=== PATIENT | female | born 1980 | race Caucasian/White ===

== ENCOUNTER 2016-04-15 16:11 | Emergency (ER) | payer OTHER ==
[~2016-04-15] VITALS: Ht 167.6 cm; Wt 127.0 kg
[~2016-04-15 16:11] MED LIST: DOCU100C37 PO; IBUP-1780 PO; ONDA8TAB13 PO; OXYC-465 PO; PNV11TAB PO
--- OUTSIDE RECORDS SUMMARY | 2016-04-15 16:17 | XMS REPORT | Continuity of Care Document ---
Author Author Interface Organization Interface Address Unknown Phone Unavailable Problems Problem Status Onset Date Classification Date Reported Comments Source Allergic rhinitis (disorder) Active Problem 10/11/2015 [facility] Gastroesophageal reflux disease (disorder) Active Problem 10/11/2015 [facility] Polycystic ovaries (disorder) Active Problem 10/11/2015 [facility] Unspecified sinusitis (chronic) 01/25/2014 Diagnosis 01/2014 [facility] Benign neoplasm of skin, site unspecified 09/14/2013 Diagnosis 09/18/2013 [facility] Encounter for other specified aftercare following surgery 09/20/2013 Diagnosis 09/24/2013 [facility] Polycystic ovaries 2013 Diagnosis 08/28/2013 [facility] Contusion of knee 2013 Diagnosis 08/28/2013 [facility] Routine gynecological examination 08/24/2013 Diagnosis [facility]. Herpes simplex without mention of complication 08/24/2013 Diagnosis 08/28/2013 [facility] Increased frequency of urination (finding) 10/07/2015 Diagnosis 10/11/2015 [facility] Polycystic ovaries (disorder) 10/07/2015 Diagnosis 2015 [facility] Medical examinations/reports status (finding) 10/07/2015 Diagnosis 10/11/2015 [facility] Medications Medication Details Route Status Patient Instructions Ordering Provider Order Date Source No Known Medications No known medications Active [facility] Allergies, Adverse Reactions, Alerts Substance Category Reaction Severity Reaction type Status Date Reported Comments Source NKA Assertion Drug allergy [facility] Immunizations Immunization Date Given Site Status Last Updated Comments Source No data available for this section No data available for this section [facility]. tetanus/diphth/pertuss (Tdap) adult/adol 08/19/2014 tetanus/diphth/pertuss (Tdap) adult/adol [place] [facility]. Results Order Name Results Value Reference Range Date Interpretation Comments Source Vital Signs Vital Sign Value Date Comments Source Encounters Location Location Details Encounter Type Encounter Number Reason For Visit Attending Provider ADM Date DC Date Status Source [facility] [id number] Clinic ( Outpatient) [id number] [place] 10/07/2015 Active [facility] [id number] Clinic ( Outpatient) [id number] [place] 08/24/2013 Active [facility] [id number] Clinic ( Outpatient) [id number] Joselyn [place] 09/20/2013 Active [facility] Cancel/ No Show [id number] [place] 11/23/2013 11/16/2013 [facility] Cancel/ No Show [id number] [place] 01/30/2014 01/25/2014 [facility] [id number] [place] 01/25/2014 01/26/2014 [facility] [id number] [place] 09/14/2013 09/15/2013 [facility] [id number] Joselyn [place] 09/20/2013 09/21/2013 [facility] [id number] Clinic ( Outpatient) [id number] [place] 01/25/2014 Active [facility] [id number] [place] 08/24/2013 08/25/2013 [facility] [id number] Clinic ( Outpatient) [id number] [place] 01/30/2014 Active [facility] [id number] [place] 10/07/2015 10/08/2015 [facility] [id number] Clinic ( Outpatient) [id number] [place] 09/14/2013 Active [facility] [id number] Clinic ( Outpatient) [id number] [place] 11/23/2013 Active [facility] Procedures Procedure Code Date Perfomer Comments Source No data available for this section [facility]. delivery only; 18207 12/03/2014 [facility].
[2016-04-15] MEDS ORDERED: BIRTH CONTROL (16:33)
[2016-04-15 16:43] LABS: BILIRUBIN,URINE NEGATIVE (NEGATIVE); KETONES,URINE NEGATIVE (NEGATIVE); LEUKOCYTE ESTERASE ,URINE 1+ (NEGATIVE); NITRITE,URINE NEGATIVE (NEGATIVE); PH,URINE 7 (5-9); PROTEIN,URINE 2+ (NEGATIVE); UROBILINOGEN,URINE 1 MG/DL (NORMAL)
--- NOTE | 2016-04-15 16:59 | ED Abdominal Pain ---
General Chief Complaint: Abdominal/GI Problems Stated Complaint: ABD PAIN Nursing Triage Note: PT STATES LOW ABD PAIN THAT STARTED THIS A.M. PAIN ON BOTH SIDES RADIATING DOWN TO VAG AREA. DENIES PAIN ON URINATION. NORMAL BM ABOUT 3 HRS [employer]. NAUSEA BUT DENIES VOMITING. CURRENTLY ON HER PERIOD, STATES SHE HAS PCOS. Sepsis Screen: No Definite Risk Source of Information: Patient Exam Limitations: No Limitations History of Present Illness Time Seen By Provider: 16:58 Initial Comments To ER with bilateral lower quadrant and suprapubic abdominal pain that started this morning. Pain has become quite intense and radiates to the vaginal area. She is on her menstrual cycle and reports no vaginal discharge other than the blood that began this morning. She has a history of polycystic ovaries but has never had pain with them before. States that her menstrual cycles are fairly regular. Timing/Duration: 1-2 Days Severity/Quality: Moderate Location: Suprapubic Radiation: No Radiation Activities at Onset: None Associated Symptoms: Denies Symptoms Allergies and Home Medications Allergies Coded Allergies: No Known Drug Allergies (Unverified , 11/28/14) Home Medications (Reported) Review of Systems Constitutional: see HPI EENTM: No Symptoms Reported Respiratory: No Symptoms Reported Cardiovascular: No Symptoms Reported Gastrointestinal: See HPI Abdominal Pain Genitourinary: No Symptoms Reported Musculoskeletal: no symptoms reported Skin: no symptoms reported Psychiatric/Neurological: No Symptoms Reported Endocrine: No Symptoms Reported Hematologic/Lymphatic: No Symptoms Reported Past Kcmolac-Erywpr-Dpaytg Hx Patient Social History Alcohol Use: Denies Use Recreational Drug Use: No Smoking Status: Never a Smoker Recent Foreign Travel: No Contact w/Someone Who Travel: No Recent Infectious Disease Expo: No Recent Hopitalizations: No Physical Abuse Screen: No Sexual Abuse: No Immunizations Up To Date Tetanus Booster (TDap): Unknown Date of Influenza Vaccine: Dec 24, 2015 Seasonal Allergies Seasonal Allergies: Yes Surgeries HX Surgeries: Yes (CYSTOSCOPE) Surgeries: Section Respiratory Hx Respiratory Disorders: No Cardiovascular Hx Cardiac Disorders: No Neurological Hx Neurological Disorders: No Reproductive System : No Hx Reproductive Disorders: Yes (PCOS) Genitourinary Hx Genitourinary Disorders: Yes (cystoscope at 5 months old) Gastrointestinal Hx Gastrointestinal Disorders: Yes Gastrointestinal Disorders: Hemorrhoids Musculoskeletal Hx Musculoskeletal Disorders: No Endocrine Hx Endocrine Disorders: No HEENT HX ENT Disorders: Yes (nastagmis) Cancer Hx Cancer: No Psychosocial Hx Psychiatric Problems: No Integumentary HX Skin/Integumentary Disorder: No Blood Transfusions Hx Blood Disorders: No Adverse Reaction to a Blood Tr: No Family Medical History Family Medial History: Patient reports no known family medical history. Physical Exam Vital Signs VS - Last 72 Hours, by Label 04/15/16 16:18 Temp 96.3 Pulse 83 Resp 20 B/P 79/ Pulse Ox 96 O2 Delivery Room Air Capillary Refill : Less Than 3 Seconds General Appearance: WD/WN no apparent distress HEENT: PERRL/EOMI normal ENT inspection Neck: non-tender full range of motion Respiratory: no respiratory distress no accessory muscle use Gastrointestinal: normal bowel sounds non tender soft Extremities: normal range of motion non-tender Neurologic/Psychiatric: alert normal mood/affect oriented x 3 Skin: normal color warm/dry Progress/Results/Core Measures Results/Orders Lab Results Laboratory Tests Test 04/15/16 16:25 04/15/16 17:10 Range/Units Urine Bacteria FEW H /HPF Urine Bilirubin NEGATIVE NEGATIVE Urine Casts NONE /LPF Urine Clarity SLIGHTLY CLOUDY Urine Color YELLOW Urine Crystals NONE /LPF Urine Culture Indicated NO Urine Glucose (UA) NEGATIVE NEGATIVE Urine Ketones NEGATIVE NEGATIVE Urine Leukocyte Esterase 1+ H NEGATIVE Urine Mucus NEGATIVE /LPF Urine Nitrite NEGATIVE NEGATIVE Urine Protein 2+ H NEGATIVE Urine RBC >100 H /HPF Urine RBC (Auto) 5+ H NEGATIVE Urine Specific [place] 1.015 L 1.016-1.022 Urine Squamous Epithelial Cells 10-25 H /HPF Urine Urobilinogen 1 NORMAL MG/DL Urine WBC 2-5 /HPF Urine pH 7 5-9 Alanine Aminotransferase (ALT/SGPT) 13 0-55 U/L Albumin 4.2 3.2-4.5 G/DL Alkaline Phosphatase 78 40-136 U/L Anion Gap 8 5-14 MMOL/L Aspartate Amino Transf (AST/SGOT) 12 5-34 U/L BUN/Creatinine Ratio 11 Band Neutrophils 4 % Basophils # (Auto) 0.0 0.0-0.1 10^3/uL Basophils % (Manual) 0 % Basophils (%) (Auto) 0 0-10 % Blood Morphology Comment NORMAL Blood Urea Nitrogen 10 7-18 MG/DL Calcium Level 8.8 8.5-10.1 MG/DL Carbon Dioxide Level 23 21-32 MMOL/L Chloride Level 107 98-107 MMOL/L Creatinine 0.91 0.60-1.30 MG/DL Eosinophils # (Auto) 0.2 0.0-0.3 10^3/uL Eosinophils % (Manual) 0 % Eosinophils (%) (Auto) 1 0-10 % Estimat Glomerular Filtration Rate > 60 Glucose Level 103 70-105 MG/DL Hematocrit 44 35-52 % Hemoglobin 14.5 11.5-16.0 G/DL Lymphocytes # (Auto) 1.9 1.0-4.0 X 10^3 Lymphocytes % (Manual) 13 % Lymphocytes (%) (Auto) 13 12-44 % Mean Corpuscular Hemoglobin 27 25-34 PG Mean Corpuscular Hemoglobin Concent 33 32-36 G/DL Mean Corpuscular Volume 82 80-99 FL Mean Platelet Volume 10.4 7.4-10.4 FL Monocytes # (Auto) 0.8 0.0-1.0 X 10^3 Monocytes % (Manual) 4 % Monocytes (%) (Auto) 5 0-12 % Neutrophils # (Auto) 11.9 H 1.8-7.8 X 10^3 Neutrophils % (Manual) 79 % Neutrophils (%) (Auto) 81 H 42-75 % Platelet Count 339 130-400 10^3/uL Potassium Level 3.8 3.6-5.0 MMOL/L Red Blood Count 5.34 4.35-5.85 10^6/uL Red Cell Distribution Width 14.4 10.0-14.5 % Sodium Level 138 135-145 MMOL/L Total Bilirubin 0.6 0.1-1.0 MG/DL Total Protein 6.9 6.4-8.2 G/DL White Blood Count 14.7 H 4.3-11.0 10^3/uL My Orders Orders-NADYA DEGROOT APRN Ua Culture If Indicated (04/15/16 16:36) Urine Bedside (04/15/16 16:36) Cbc With Automated Diff (04/15/16 16:49) Comprehensive Metabolic Panel (04/15/16 16:49) Saline Lock/Iv-Start (04/15/16 16:57) Ketorolac Injection (Toradol Injection) (04/15/16 17:00) Iohexol Injection (Omnipaque 350 Mg/Ml 1 (04/15/16 17:15) Ns (Ivpb) (Sodium Chloride 0.9% Ivpb Bag (04/15/16 17:15) Sodium Chloride Flush (Catheter Flush Sy (04/15/16 17:15) Ct Abd/Pelvis Wo(Kidney Stone) (04/15/16 17:20) Manual Differential (04/15/16 17:10) Us Non Ob Pelvis Comp/Transvag (04/15/16 17:43) Medications Given in ED Current Medications Medications Dose Ordered Sig/Robbin Route Start Time Stop Time Status Last Admin Dose Admin Ketorolac Tromethamine 30 mg ONCE ONCE IVP 04/15/16 17:00 04/15/16 17:01 DC 04/15/16 17:22 30 MG Vital Signs/I&O Vital Sign - Last 12Hours 04/15/16 16:18 Temp 96.3 Pulse 83 Resp 20 B/P 79/ Pulse Ox 96 O2 Delivery Room Air Point of Care Testing Urine -Bedside: Negative Diagnostic Imaging Diagonstic Imaging: CT Comments NAME: RACHNA MINER Diana [facility] REC#: [id number] PT STATUS: REG ER : 1980 PHYSICIAN: NADYA DEGROOT APRN ADMIT DATE: 04/15/16/ER Signed Date of Exam:04/15/16 CT ABD/PELVIS WO(KIDNEY STONE) INDICATION: Kidney stone protocol for anterior pain in the belly button region. Nausea. No hematuria. EXAMINATION: CT of the abdomen and pelvis without contrast, 04/15/2016. FINDINGS: There is no hydronephrosis on either side. No nephrolithiasis is appreciated. There are no ureteral stones appreciated. There are calcifications in the pelvis most consistent with phleboliths. There is a small amount of free fluid in the pelvis which is likely physiologic. There is a large heterogeneous lesion in the left aspect of the upper pelvis which contains fatty tissue as well as calcifications, most consistent with a dermoid or teratoma. This measures 4.2 x 5.1 cm in size. A similar but larger lesion on the right is noted and measures 9.3 x 7.0 cm in size, also containing fatty tissue, solid densities and calcifications as well as fluid. In the same region, within the anterior pelvis, there is a fat-containing anterior abdominal wall hernia which measures 6.6 cm in greatest dimension. A small amount of fat stranding within the herniated fat and also within the mesenteric fat immediately posterior to the herniation is noted. Nonopacified liver, spleen, adrenal glands and pancreas appear unremarkable. The gallbladder is slightly contracted without surrounding inflammatory change appreciated. A rounded density anterior to the spleen most likely is a splenule. There is no free fluid or air in the abdomen. The appendix is unremarkable. No free air in the pelvis. Some fatty change is seen within the wall and the bowel loops perhaps due to chronic or prior infectious etiology. Superimposed focal enteritis or acute inflammatory process is not excluded given some inflammation and fat stranding and fluid surrounding the right lower quadrant small bowel loops. The osseous structures demonstrate no evidence for acute abnormality. Incomplete pars defects noted in the lower lumbar region. The lung bases are unremarkable. The appendix is unremarkable. IMPRESSION: 1. Heterogeneous masses in the pelvis, bilaterally, likely teratomas or dermoids, associated with both ovaries. Sonographic characterization on a nonemergent basis could further characterize. 2. Fat-containing anterior abdominal wall hernia in the lower abdomen. Some fat stranding is seen within the herniated fat and also within the fatty tissues in the anterior mesentery. A superimposed inflammatory process is possible, correlate with symptoms. 3. Inflammatory change about several small bowel loops in the right lower abdomen. This could be due to an enteritis or other inflammatory/infectious process, correlate with history and symptoms. 4. Other incidental findings as discussed above. Dictated by: Dictated on workstation # [id number] Dict: 04/15/16 1739 Trans: 04/15/[address] [facility] [id number] Interpreted by: KIMBERLEE DIAZ MD Electronically signed by: KIMBERLEE DIAZ MD 04/15/16 1824 Departure Communication Progress Notes Discussed the case with Dr. Downing. He recommends follow-up with major assembly lineman as soon as possible. Impression Impression: Primary Impression: Bilateral dermoid cysts of ovaries Disposition: HOME, SELF-CARE Condition: Stable Departure-Patient Inst. Referrals: VENICE RICHTER DENNIS G MD MCNULTY, ERIN N MD NO,LOCAL PHYSICIAN (PCP) Primary Care Physician PIERRE DOWNING DO Patient Instructions: Ovarian Cyst (DC) Add. Discharge Instructions: 1. Call tomorrow to make an appointment for follow-up next week 2. Return to ER for any worsening pain or other concerns 3. Tylenol and Motrin for pain All discharge instructions reviewed with patient and/or family. Voiced understanding. Copy Copies To 1: JOSE ANGEL CARVALHO MD; PIERRE DOWNING PETER J APRN Apr 15, 2016 16:59
[2016-04-15] MEDS ORDERED: KETOROLAC 30 MG/ML VIAL IVP ONE (17:00)
[2016-04-15] MEDS ORDERED: IOHEXOL 350 MG/ML 100 ML (OMNIPAQUE 350) VIAL IV ONE (17:15)
[2016-04-15] MEDS ORDERED: NS 100 ML (IVPB) BAG IV ONE (17:15)
[2016-04-15] MEDS ORDERED: CATHETER FLUSH 10 ML SYR IV PRN (17:15)
[2016-04-15 17:24] LABS: BASOPHILS % (AUTO) 0 % (0-10); EOSINOPHILS # (AUTO) 0.2 10^3/uL (0.0-0.3); EOSINOPHILS % (AUTO) 1 % (0-10); LYMPHOCYTES # (AUTO) 1.9 X 10^3 (1.0-4.0); LYMPHOCYTES % (AUTO) 13 % (12-44); MEAN CORPUSCULAR HEMOGLOBIN 27 PG (25-34); MEAN CORPUSCULAR HGB CONC 33 G/DL (32-36); MEAN CORPUSCULAR VOLUME 82 FL (80-99); MEAN PLATELET VOLUME 10.4 FL (7.4-10.4); MONOCYTES # (AUTO) 0.8 X 10^3 (0.0-1.0); MONOCYTES % (AUTO) 5 % (0-12); NEUTROPHILS # (AUTO) 11.9 X 10^3 (1.8-7.8); NEUTROPHILS % (AUTO) 81 % (42-75); PLATELET COUNT 339 10^3/uL (130-400); RED BLOOD COUNT 5.34 10^6/uL (4.35-5.85); RED CELL DISTRIBUTION WIDTH 14.4 % (10.0-14.5); WHITE BLOOD COUNT 14.7 10^3/uL (4.3-11.0)
[2016-04-15 17:39] LABS: ALANINE AMINOTRANSFERASE 13 U/L (0-55); ALBUMIN 4.2 G/DL (3.2-4.5); ANION GAP 8 MMOL/L (5-14); ASPARTATE AMINO TRANSFERASE 12 U/L (5-34); BAND NEUTROPHILS 4 %; BILIRUBIN,TOTAL 0.6 MG/DL (0.1-1.0); BLOOD UREA NITROGEN 10 MG/DL (7-18); BUN/CREATININE RATIO 11; CALCIUM 8.8 MG/DL (8.5-10.1); CARBON DIOXIDE 23 MMOL/L (21-32); CHLORIDE 107 MMOL/L (98-107); CREATININE SERUM 0.91 MG/DL (0.60-1.30); GFR ESTIMATED > 60; GLUCOSE 103 MG/DL (70-105); NEUTROPHILS % (MANUAL) 79 %; POTASSIUM 3.8 MMOL/L (3.6-5.0); SODIUM 138 MMOL/L (135-145); TOTAL PROTEIN 6.9 G/DL (6.4-8.2)
[2016-04-15 17:40] LABS: BASOPHILS % (MANUAL) 0 %; EOSINOPHILS % (MANUAL) 0 %; LYMPHOCYTES % (MANUAL) 13 %
--- NOTE | 2016-04-15 17:52 | Diagnostic Imaging Report ---
INDICATION: Kidney stone protocol for anterior pain in the belly button region. Nausea. No hematuria. EXAMINATION: CT of the abdomen and pelvis without contrast, 04/15/2016. FINDINGS: There is no hydronephrosis on either side. No nephrolithiasis is appreciated. There are no ureteral stones appreciated. There are calcifications in the pelvis most consistent with phleboliths. There is a small amount of free fluid in the pelvis which is likely physiologic. There is a large heterogeneous lesion in the left aspect of the upper pelvis which contains fatty tissue as well as calcifications, most consistent with a dermoid or teratoma. This measures 4.2 x 5.1 cm in size. A similar but larger lesion on the right is noted and measures 9.3 x 7.0 cm in size, also containing fatty tissue, solid densities and calcifications as well as fluid. In the same region, within the anterior pelvis, there is a fat-containing anterior abdominal wall hernia which measures 6.6 cm in greatest dimension. A small amount of fat stranding within the herniated fat and also within the mesenteric fat immediately posterior to the herniation is noted. Nonopacified liver, spleen, adrenal glands and pancreas appear unremarkable. The gallbladder is slightly contracted without surrounding inflammatory change appreciated. A rounded density anterior to the spleen most likely is a splenule. There is no free fluid or air in the abdomen. The appendix is unremarkable. No free air in the pelvis. Some fatty change is seen within the wall and the bowel loops perhaps due to chronic or prior infectious etiology. Superimposed focal enteritis or acute inflammatory process is not excluded given some inflammation and fat stranding and fluid surrounding the right lower quadrant small bowel loops. The osseous structures demonstrate no evidence for acute abnormality. Incomplete pars defects noted in the lower lumbar region. The lung bases are unremarkable. The appendix is unremarkable. IMPRESSION: 1. Heterogeneous masses in the pelvis, bilaterally, likely teratomas or dermoids, associated with both ovaries. Sonographic characterization on a nonemergent basis could further characterize. 2. Fat-containing anterior abdominal wall hernia in the lower abdomen. Some fat stranding is seen within the herniated fat and also within the fatty tissues in the anterior mesentery. A superimposed inflammatory process is possible, correlate with symptoms. 3. Inflammatory change about several small bowel loops in the right lower abdomen. This could be due to an enteritis or other inflammatory/infectious process, correlate with history and symptoms. 4. Other incidental findings as discussed above. Dictated by: Dictated on workstation # [id number]
[2016-04-15 18:34] VITALS: BP 123/85
--- NOTE | 2016-04-15 18:49 | Diagnostic Imaging Report ---
INDICATION: Bilateral adnexal masses seen on previously performed CT. COMPARISON: CT from earlier same day. TECHNIQUE: Transpelvic and transvaginal sonogram was performed. FINDINGS: Uterus is anteverted and measures 7.5 cm in length x 4.4 cm transversely x 3 cm in the AP dimension. No focal myometrial mass-type lesions are seen. Endometrial stripe is within normal limits at 4 mm. Note is made of small amount of fluid within the endocervical canal. Small amount of free fluid is seen within the cul-de-sac. Unfortunately, the ovaries and ovarian masses seen on previously performed CT abdomen and pelvis cannot be identified with either transpelvic or transvaginal imaging. IMPRESSION: 1. Previously described bilateral ovarian masses cannot be adequately visualized with transpelvic or transvaginal sonographic imaging. Surgical consultation recommended. 2. Small amount of free fluid in the cul-de-sac and endocervical canal. Dictated by: Dictated on workstation # [id number]
[2016-04-16] MEDS ORDERED: BIFI4CAP PO (11:37)
[2016-04-16] MEDS ORDERED: OXYC-202 PO (12:00)
== END 2016-04-15 18:34 | disposition home or self-care (01) ==
LOC: EDUNIT# 16:11 → ER 16:12
DX: D27.9 Benign neoplasm of unspecified ovary (principal); K46.9 Unspecified abdominal hernia without obstruction or gangrene
CPT/HCPCS: 36415; 74176; 76830; 76856; 80053; 81000; 84703; 85007; 85027; 96374

== ENCOUNTER 2016-04-16 10:36 | Day surgery (SDC) | payer OTHER ==
[~2016-04-16] VITALS: Ht 167.6 cm; Wt 122.5 kg
[~2016-04-16 10:36] MED LIST changes: +BIRTH CONTROL
[2016-04-16] MEDS ORDERED: ceFAZolin 1 GM/NS 50 ML IVPB IV ONE ×2 (11:00)
[2016-04-16] MEDS ORDERED: CATHETER FLUSH 10 ML SYR IV PRN (11:00)
[2016-04-16 11:05] VITALS: BP 116/82
[2016-04-16 11:13] LABS: BASOPHILS % (AUTO) 0 % (0-10); EOSINOPHILS # (AUTO) 0.1 10^3/uL (0.0-0.3); EOSINOPHILS % (AUTO) 1 % (0-10); LYMPHOCYTES # (AUTO) 1.7 X 10^3 (1.0-4.0); LYMPHOCYTES % (AUTO) 15 % (12-44); MEAN CORPUSCULAR HEMOGLOBIN 27 PG (25-34); MEAN CORPUSCULAR HGB CONC 33 G/DL (32-36); MEAN CORPUSCULAR VOLUME 83 FL (80-99); MEAN PLATELET VOLUME 10.2 FL (7.4-10.4); MONOCYTES # (AUTO) 0.8 X 10^3 (0.0-1.0); MONOCYTES % (AUTO) 7 % (0-12); NEUTROPHILS # (AUTO) 8.7 X 10^3 (1.8-7.8); NEUTROPHILS % (AUTO) 77 % (42-75); PLATELET COUNT 307 10^3/uL (130-400); RED CELL DISTRIBUTION WIDTH 14.6 % (10.0-14.5); WHITE BLOOD COUNT 11.3 10^3/uL (4.3-11.0)
[2016-04-16] MEDS ORDERED: BIFI4CAP PO (11:37)
[2016-04-16] MEDS ORDERED: BUP/EPI 0.25% 1:200,000 (MARCAINE) 30 ML VIAL ONE (11:52)
[2016-04-16] MEDS ORDERED: D5 LR IV SOLUTION 1,000 ML IV SCH (11:58)
--- NOTE | 2016-04-16 11:58 | Progress Note-Pre Operative ---
Pre-Operative Progress Note H&P Reviewed The H&P was reviewed, patient examined and no changes noted. Date H&P Reviewed: Apr 16, 2016 Time H&P Reviewed: 11:57 Pre-Operative Diagnosis: bilateral pelvic masses consistent with dermoids JOSE ANGEL CARVALHO MD Apr 16, 2016 11:58 am
[2016-04-16] MEDS ORDERED: OXYC-202 PO (12:00)
[2016-04-16] MEDS ORDERED: ONDANSETRON 4 MG/2 ML (SDV) Z0FRAN IVP PRN ×2 (12:00→13:30)
[2016-04-16] MEDS ORDERED: ESTROGENS CONJ IV 25 MG/5 ML (PREMARIN) VIAL IVP ONE (12:00)
[2016-04-16] MEDS ORDERED: KETOROLAC 30 MG/ML VIAL IVP ONE (12:00)
[2016-04-16] MEDS ORDERED: PROMETHAZINE INJ 25 MG/ML (PHENERGAN) AMP IM ONE (12:00)
[2016-04-16] MEDS ORDERED: MEPERIDINE (DEMEROL) INJ 100 MG/ML IM ONE (12:00)
[2016-04-16] MEDS ORDERED: oxyCODONE/APAP 10/325MG (PERCOCET 10) TABLET PO PRN (12:00)
--- NOTE | 2016-04-16 12:02 | Discharge Instructions ---
Discharge Instructions Discharge Medications New, Converted or Re-Newed RX: RX on Chart Patient Instructions Patient Instructions: as directed Return to The Hospital For: aas directed Activity & Diet Discharge Diet: No Restrictions Activity as Tolerated: Yes Orders-Post D/C & Referrals Follow Up Appt: Call to make follow up appt. for patient in 1 weeks. Activity: Rest for 24 hours, than as tolerated. Wound Care: May remove Band-Aid tomorrow. Replace as desired. Keep incisions clean and dry. Wash daily with soap and water. Diet: As tolerated-Clear Liquids only if nauseated. Tomorrow, may shower or tub bathe as desired. No driving for 24 hours, no alcoholic beverages for 24 hours, and nothing per vagina (no tampons, douching, or intercourse) for 2 weeks. Patient to return to the clinic as soon as possible for: Temperature greater than 101F, Severe Pain, Foul discharge from incision or vagina, Excessive Bleeding (more than a period). JOSE ANGEL CARVALHO MD Apr 16, 2016 12:02 pm
[2016-04-16] MEDS ORDERED: LACTATED RINGERS 1,000 ML IV ONE ×3 (12:26→15:10)
[2016-04-16] MEDS ORDERED: LIDOCAINE JELLY 2% (XYLOCAINE) 5 ML TUBE ONE (12:26)
[2016-04-16] MEDS ORDERED: MIDAZOLAM 2 MG/2 ML (VERSED) VIAL ONE (12:26)
[2016-04-16] MEDS ORDERED: LIDOCAINE PF 2% 10 ML (XYLOCAINE) AMP ONE (12:26)
[2016-04-16] MEDS ORDERED: fentaNYL INJECTION 100 MCG/2 ML AMP ONE ×2 (12:26→13:28)
[2016-04-16] MEDS ORDERED: ROCURONIUM 50 MG/5 ML (ZEMURON) VIAL IV ONE (12:26)
[2016-04-16] MEDS ORDERED: proPOfol 200 MG/20 ML (DIPRIVAN) VIAL IV ONE ×3 (12:26→14:36)
[2016-04-16] MEDS: LACTATED RINGERS 1,000 ML IV PRN ×2 (13:25→15:12)
[2016-04-16] MEDS ORDERED: morphine INJ 10 MG/ML 1ML (SYR OR VIAL) IVP PRN (13:30)
[2016-04-16] MEDS ORDERED: MEPERIDINE (DEMEROL) INJ 50 MG/ML IVP PRN ×2 (13:30→15:15)
[2016-04-16] MEDS ORDERED: SEVOFLURANE (ULTANE) 15 ML INHAL SOLN ONE ×5 (14:07→15:09)
[2016-04-16] MEDS ORDERED: WATER (STERILE) FOR INJECTION 10 ML ONE (14:51)
[2016-04-16] MEDS ORDERED: morphine INJ 10 MG/ML 1ML (SYR OR VIAL) ONE (14:56)
[2016-04-16] MEDS: morphine INJ 10 MG/ML 1ML (SYR OR VIAL) IVP PRN ×2 (15:08→15:20)
[2016-04-16] MEDS: ONDANSETRON 4 MG/2 ML (SDV) Z0FRAN IVP PRN ×2 (15:18→15:30)
[2016-04-16] MEDS ORDERED: ONDANSETRON 4 MG/2 ML (SDV) Z0FRAN ONE (15:30)
[2016-04-16 16:00] VITALS: BP 120/78
[2016-04-16 16:30] VITALS: BP 119/78
[2016-04-16] MEDS ORDERED: PROMETHAZINE INJ 25 MG/ML (PHENERGAN) AMP IVP ONE (16:45)
[2016-04-16 17:00] VITALS: BP 116/75
--- NOTE | 2016-04-18 13:32 | OPERATIVE REPORT ---
PROCEDURE PHYSICIAN: JOSE ANGEL CARVALHO DATE OF PROCEDURE: 04/16/2016 DATE OF DICTATION: 04/16/2016 PREOPERATIVE DIAGNOSIS: Bilateral ovarian masses consistent with dermoids. POSTOPERATIVE DIAGNOSIS: Bilateral ovarian masses consistent with dermoids. OPERATIVE PROCEDURE: Left partial oophorectomy to remove dermoid and right partial oophorectomy as well as adhesiolysis. OPERATIVE DESCRIPTION: With the patient in supine position, under satisfactory general anesthesia, she was repositioned in dorsal lithotomy position in the Piero stirrups and prepped and draped usual fashion for vaginal and abdominal surgery. A weighted speculum placed in appropriate fornix of vagina. Cervix exposed and grasped anteriorly with single-tooth tenaculum. The uterus was sounded to 11 cm uterine sound. The cervix was then serially dilated to accommodate a uterine manipulator which was placed and the bulb filled 4 mL of air. The tenaculum and speculum were removed. The patient brought in low dorsal lithotomy position. A 5 mm incision made in the patient's left upper quadrant. A 12 mm incision in the inferior margin of the umbilicus and a 5 mm incision superior to the symphysis pubis. A 4th incision made in the right upper quadrant as well eventually for a fourth port. Veress needle was placed through the left upper quadrant incision. Correct placement confirmed with the water drop test. The abdomen was insufflated with 2.4 liters of carbon dioxide and the Veress needle was removed and a 5 mm Optiview laparoscopic port placed. The patient was placed in Trendelenburg and then a 12 mm port was placed through the umbilical incision and a 5 mm port in the suprapubic incision. There was dense adhesion inferior to the umbilicus of the omentum to the anterior abdominal wall. This was taken free by placing the 4th port and right upper quadrant and then using Endo Eliazar to takedown adhesion by resecting the portion of omentum adherent to the abdominal wall. With that freed, the pelvis could be examined. The uterus was normal. Right fallopian tube was markedly enlarged and up above the pelvic brim completely involved with a cyst consistent with a dermoid. The left ovary was about two-thirds involved with a similar but smaller cyst consistent with dermoid as well. The decision was made to resect a portion of the left ovary which was done by incising at the margin of the dermoid cyst with the normal ovary and when that was completely freed placed in an Endobag decompressing it with suction and then extracting in the Endobag through the umbilical incision. That was sent to pathology for permanent section. The right ovary could not be salvaged. An Endo GI was placed across the mesovarian and fired; it took 3 firings of the Endo JUNG to completely separate the ovary from its attachments. A small portion of the ovary likely remained so this constitutes a partial oophorectomy. The right fallopian tube was normal and was not damaged in to the process. In order to remove the cyst without a large incision, the cyst was actually 3 loculations; 2 of the 3 were perforated and then fatty tissue containing hair and other debris was suctioned out enough to place the specimen in an Endobag and brought out through the umbilical incision which did require enlarging to approximately 3 cm. The scope was replaced in the abdomen. The abdomen was irrigated, examined for hemostasis. With hemostasis assured, and no further abnormal pathology, the procedure was terminated. The operative instruments were removed as were the ports. The skin incisions were closed with nylon. The fascia at the umbilical incision was closed with a running lock suture of 2-0 Vicryl. The peritoneum had been closed with running suture of 2-0 Vicryl as well. Sponge and needle counts were correct on completion of procedure. Estimated blood loss for procedure around 50 mL the patient tolerated the procedure well, and was uneventfully awakened from her general anesthesia and transferred to the recovery room in stable condition. The uterine manipulator bulb had been drained. The instrument was removed from the vagina. Speculum replaced in the vagina and hemostasis was assured. The patient tolerated the procedure well. Job ID: [id number] Dictated Date: 04/16/2016 15:16:45 Plumbing Foreman Date: 04/18/2016 13:22:57 / kyra
== END 2016-04-16 18:15 | disposition home or self-care (01) ==
LOC: SDC 10:36
PROVIDERS: ATTEND Obstetrics & Gynecology
DX: D27.0 Benign neoplasm of right ovary (principal); D27.1 Benign neoplasm of left ovary; K66.0 Peritoneal adhesions (postprocedural) (postinfection)
CPT/HCPCS: 36415; 85025; 87081; 88307

== ENCOUNTER 2017-09-29 10:26 | Outpatient (CLI) | payer OTHER ==
[~2017-09-29] VITALS: Ht 167.6 cm; Wt 132.5 kg
[~2017-09-29 10:26] MED LIST changes: +BIFI4CAP PO; +OXYC-202 PO
[2017-09-29] MEDS ORDERED: PREN-142 PO (10:35)
[2017-09-29 10:37] VITALS: BP 119/73
== END 2017-09-29 10:54 | disposition home or self-care (01) ==
LOC: PREOP 10:26
PROVIDERS: ATTEND Obstetrics & Gynecology
DX: Z01.818 Encounter for other preprocedural examination (principal); Z11.2 Encounter for screening for other bacterial diseases; O34.219 Maternal care for unspecified type scar from previous cesarean delivery
CPT/HCPCS: 87081

== ENCOUNTER 2017-10-04 09:50 | Inpatient (IN) | payer OTHER ==
[~2017-10-04] VITALS: Ht 167.6 cm; Wt 132.5 kg
[~2017-10-04 09:50] MED LIST changes: +PREN-142 PO
[2017-10-04 10:20] VITALS: BP 115/61
[2017-10-04] MEDS ORDERED: ceFAZolin 2 GM IV Premixed 50 ML IV ONE (10:45)
[2017-10-04] MEDS ORDERED: metroNIDAZOLE 500MG/100ML IVPB 100 ML IV ONE (10:45)
[2017-10-04 11:19] LABS: BASOPHILS % (AUTO) 0 % (0-10); EOSINOPHILS # (AUTO) 0.2 10^3/uL (0.0-0.3); EOSINOPHILS % (AUTO) 2 % (0-10); HEMATOCRIT 32 % (35-52); HEMOGLOBIN 10.5 G/DL (11.5-16.0); LYMPHOCYTES # (AUTO) 2.1 X 10^3 (1.0-4.0); LYMPHOCYTES % (AUTO) 20 % (12-44); MEAN CORPUSCULAR HGB CONC 33 G/DL (32-36); MEAN CORPUSCULAR VOLUME 83 FL (80-99); MEAN PLATELET VOLUME 10.8 FL (7.4-10.4); MONOCYTES # (AUTO) 0.8 X 10^3 (0.0-1.0); MONOCYTES % (AUTO) 8 % (0-12); NEUTROPHILS # (AUTO) 7.2 X 10^3 (1.8-7.8); NEUTROPHILS % (AUTO) 70 % (42-75); PLATELET COUNT 268 10^3/uL (130-400); RED BLOOD COUNT 3.82 10^6/uL (4.35-5.85); RED CELL DISTRIBUTION WIDTH 15.4 % (10.0-14.5); WHITE BLOOD COUNT 10.3 10^3/uL (4.3-11.0)
[2017-10-04 11:20] LABS: MEAN CORPUSCULAR HEMOGLOBIN 27 PG (25-34)
[2017-10-04] MEDS ORDERED: METOCLOPRAMIDE INJ 10 MG/2 ML (REGLAN) ONE (11:24)
[2017-10-04] MEDS ORDERED: raNItidine 50 MG/2 ML INJ (ZANTAC) ONE (11:24)
[2017-10-04] MEDS ORDERED: CITRIC ACID/SOB CIT (BICITRA) 30 ML UDC ONE (11:25)
[2017-10-04] MEDS ORDERED: ceFAZolin 2 GM IV Premixed 50 ML ONE (11:28)
[2017-10-04] MEDS ORDERED: metroNIDAZOLE 500MG/100ML IVPB 100 ML ONE (11:28)
[2017-10-04] MEDS ORDERED: METOCLOPRAMIDE INJ 10 MG/2 ML (REGLAN) IV ONE (11:30)
[2017-10-04] MEDS ORDERED: raNItidine INJECTION 50 MG in NS (IVPB) 50 ML IV ONE (11:30)
[2017-10-04] MEDS ORDERED: CITRIC ACID/SOB CIT (BICITRA) 30 ML UDC PO ONE (11:30)
[2017-10-04] MEDS ORDERED: CATHETER FLUSH 10 ML SYR IV PRN (11:30)
[2017-10-04] MEDS ORDERED: fentaNYL INJECTION 100 MCG/2 ML AMP ONE (11:42)
[2017-10-04] MEDS ORDERED: BUPIVACAINE 0.5% 30 ML (SENSORCAINE) VIAL ONE (11:44)
[2017-10-04] MEDS ORDERED: LIDOCAINE PF 1% 5 ML (XYLOCAINE) AMP ONE (11:44)
[2017-10-04] MEDS ORDERED: OXYTOCIN/NORMAL SALINE 500 ML IV SCH (11:48)
[2017-10-04] MEDS ORDERED: OXYTOCIN/NORMAL SALINE 1,000 ML IV ONE (11:50)
--- NOTE | 2017-10-04 11:54 | History & Physical ---
History and Physical Date Seen by Provider: Oct 04, 2017 Time Seen by Provider: 11:52 This patient is a 37-year-old LC 2 white female with an EDC of 8 118 presenting now for repeat delivery her is complicated by advanced maternal age previous and her obesity is further complicated by oligohydramnios. Patient denies rupture membranes or bleeding. Her GBS culture was negative. Allergies are none Medications are vitamins Medical social and surgical histories are per the antepartum record HEENT exam is normal Neck is supple no lymphadenopathy no thyromegaly Abdomen is gravid soft nontender nondistended Extremities show no clubbing or cyanosis. There is no Homans sign. Pelvic exam is deferred Laboratory Tests 10/04/17 11:02 Assessment and plan term at one day shy of 38 weeks gestation in a patient with oligohydramnios admitted now for repeat delivery. Patient has significant comorbidities including obesity and advanced maternal age. Surgical risks and complications recovery and follow-up have been fully discussed patient accepts those risks and is ready to proceed repeat Allergies and Home Medications Allergies Coded Allergies: No Known Drug Allergies (Unverified , 09/29/17) Home Medications Vit No.124/Iron/FA 1 Each Tablet, 1 EACH PO DAILY, (Reported) Patient Home Medication List Home Medication List Reviewed: Yes JOSE ANGEL CARVALHO MD Oct 04, 2017 11:54 am
[2017-10-04] MEDS ORDERED: D5 LR IV SOLUTION 1,000 ML IV ONE (11:56)
[2017-10-04] MEDS ORDERED: PROMETHAZINE INJ 25 MG/ML (PHENERGAN) AMP IM PRN (12:00)
[2017-10-04] MEDS ORDERED: TETANUS,DIPTH,PERTUSS P/F (BOOSTRIX) 0.5 ML VIAL IM ONE (12:00)
[2017-10-04] MEDS ORDERED: ONDANSETRON 4 MG/2 ML (SDV) Z0FRAN IVP PRN ×2 (12:00→13:00)
[2017-10-04] MEDS ORDERED: MEPERIDINE (DEMEROL) INJ 100 MG/ML IM PRN (12:00)
[2017-10-04] MEDS ORDERED: MEASLES,MUMPS,RUBELLA 1 EA INJ SC ONE (12:00)
[2017-10-04] MEDS ORDERED: GLYCOPYRROLATE 0.2 MG/ML (ROBINUL) 2 ML VIAL ONE (12:14)
[2017-10-04] MEDS ORDERED: PHENYLEPHRINE 100 MCG/ML 10 ML (ANESTHESIA) SYR ONE (12:20)
[2017-10-04] MEDS ORDERED: ONDANSETRON 4 MG/2 ML (SDV) Z0FRAN ONE (12:23)
[2017-10-04] MEDS ORDERED: OXYTOCIN/NORMAL SALINE 500 ML IV ONE (12:28)
[2017-10-04] MEDS ORDERED: fentaNYL INJECTION 100 MCG/2 ML AMP IVP PRN (13:00)
[2017-10-04] MEDS ORDERED: HYDROmorphone 1 MG/ML (DILAUDID) 1 ML SYRINGE IV PRN (13:00)
[2017-10-04] MEDS ORDERED: PROMETHAZINE INJ 25 MG/ML (PHENERGAN) AMP IVP PRN (13:00)
[2017-10-04] MEDS: KETOROLAC 30 MG/ML VIAL IVP SCH ×2 (14:16→19:53)
[2017-10-04 15:05] VITALS: BP 100/64
[2017-10-04] MEDS: oxyCODONE/APAP 10/325MG (PERCOCET 10) TABLET PO PRN ×3 (15:44→21:25)
--- NOTE | 2017-10-04 19:40 | OPERATIVE REPORT ---
DATE OF SERVICE: 10/04/2017 PREOPERATIVE DIAGNOSES: Term at 37 and 6/7 weeks' gestation with oligohydramnios, previous section x1, advanced maternal age and morbid obesity. POSTOPERATIVE DIAGNOSES: Term at 37 and 6/7 weeks' gestation with oligohydramnios, previous section x1, advanced maternal age and morbid obesity with umbilical hernia. OPERATIVE PROCEDURE: Repeat low transverse delivery of a viable male infant with Apgars of 8 and 9 at 1 and 5 minutes, expected weight of 8 pounds 1 ounce, time of 12:27. The cord blood pH was 7.3. OPERATIVE DESCRIPTION: With the patient in the supine position under satisfactory spinal analgesia, she was prepped and draped in the usual fashion for abdominal surgery. Merritt catheter was placed in the urinary bladder. Repeat Pfannenstiel incision was made through the skin with a scalpel at the site of the patient's previous Pfannenstiel incision. The abdomen was entered in the usual manner. There was a nodular mass noted on the anterior parietal peritoneum. This appeared to be some calcified adipose tissue that was discrete and coalesced into a mass. This was just resected by removing a small piece of the peritoneum that was sent to pathology for permanent section. The patient also had omentum protruding up into the umbilicus. Access from the Pfannenstiel incision was limited, so no attempt was made to lyse that completely. The omentum held up easily to allow for complete access to the uterus. The bladder retractor was placed into position. The lower uterine segment exposed and a clean scalpel was used to make a 4 cm hysterotomy incision transversely across lower uterine segment that was extended by blunt dissection as well. A vigorous viable male was delivered via the uterine incision. had Apgars and weight and stats as noted above. The was bulb suctioned on delivery of the head and again on completion of delivery. The umbilical cord was doubly clamped and then cut and the infant was passed to Dr. Ward, the bounty trapper in attendance for delivery. Cord bloods were obtained. The placenta delivered spontaneously Cuello. It was normal with three-vessel cord. The uterus was exteriorized and interior wiped clean with a wet laparotomy sponge. Uterine incision was closed with a running locked suture of 2-0 Vicryl. Hemostasis was complete. The uterus was returned to the abdominal cavity. All blood clot and debris removed from the abdominal cavity. With sponge and needle counts correct, hemostasis assured. The anterior parietal peritoneum was closed with a running suture of 2-0 Vicryl. Rectus muscles were closed with that suture as well. The rectus fascia was closed with 2-0 Vicryl, subcutaneous tissue was closed with 2-0 Vicryl and the skin was stapled. Sponge and needle counts were correct on completion of the procedure. Estimated blood loss was around 500 mL. The patient tolerated the procedure well and was transferred to the recovery room in stable condition. The infant had been taken stable to the full term nursery in the care of Dr. Ward. Job ID: [id number] DocumentID: [id number] Dictated Date: 10/04/2017 12:49:31 Confidential Investigator Date: 10/04/2017 19:39:35 Dictated By: JOSE ANGEL CARVALHO MD
[2017-10-04] MEDS: DOCUSATE SODIUM 100 MG (COLACE) CAP PO SCH (19:54)
[2017-10-05 00:30] VITALS: BP 90/62
[2017-10-05] MEDS: KETOROLAC 30 MG/ML VIAL IVP SCH (02:06)
[2017-10-05 03:45] VITALS: BP 116/80
[2017-10-05] MEDS: oxyCODONE/APAP 10/325MG (PERCOCET 10) TABLET PO PRN ×4 (04:41→20:38)
--- NOTE | 2017-10-05 07:13 | Progress Note-Standard ---
Standard Progress Note Progress Notes/Assess & Plan Date Seen by Provider: Oct 05, 2017 Time Seen by Provider: 07:11 Progress/Assessment & Plan This patient is without complaint. She is ambulating, voiding, tolerating oral intake is good pain control. Patient denies chest pain, denies shortness of breath, denies nausea vomiting, denies headache. Vital signs are stable. Patient is afebrile. Vital Signs 10/05/17 10/05/17 00:30 03:45 Temp 97.6 Pulse 70 Resp 18 B/P (MAP) 116/80 (92) Pulse Ox 97 O2 Delivery Room Air The abdomen is benign extremities show no clubbing or cyanosis. There is fairly notable pretibial pitting edema that is not new or abnormal. There is no Homans Assessment and plan postoperative day number 1 status post repeat delivery doing well. Plan for routine convalescence care today and consider discharge home tomorrow JOSE ANGEL CARVALHO MD Oct 05, 2017 7:13 am
[2017-10-05] MEDS ORDERED: DOCU100C37 PO (07:16)
[2017-10-05] MEDS ORDERED: OXYC-465 PO (07:16)
[2017-10-05] MEDS ORDERED: IBUP-1780 PO (07:16)
--- NOTE | 2017-10-05 07:17 | Discharge Instructions ---
Discharge Instructions Discharge Medications New, Converted or Re-Newed RX: RX on Chart Patient Instructions Patient Instructions: As directed Return to The Hospital For: As directed Activity & Diet Discharge Diet: No Restrictions Activity as Tolerated: No Orders-Post D/C & Referrals Follow Up Appt: RTC 1 week for incision check. Call to make follow up appt. for patient in 4 weeks. Wound Care: Remove spike, apply benzoin and steri strips. Activity Per routine post instructions. Please call in RX to patient pharmacy. Diet as tolerated Patient may shower or tub bathe as desired. Continue home meds JOSE ANGEL CARVALHO MD Oct 05, 2017 7:17 am
[2017-10-05] MEDS ORDERED: IBUPROFEN 800 MG (MOTRIN) TAB PO ONE (07:32)
--- NOTE | 2017-10-05 07:39 | Anesthesia-Regional Post-Op ---
Regional Patient Condition Mental Status: Alert, Oriented x3 Circulation: Same as Pre-Op Headache: Absent Sensation: Full Recovery Motor Block: Absent Post Op Complications Complications None Follow Up Care/Instructions Patient Instructions None needed. Anesthesia/Patient Condition Patient is doing well, no complaints, stable vital signs, no apparent adverse anesthesia problems. No complications reported per nursing. PABLO GREEN CRNA Oct 05, 2017 07:39
[2017-10-05 07:40] VITALS: BP 112/71
[2017-10-05] MEDS: DOCUSATE SODIUM 100 MG (COLACE) CAP PO SCH ×2 (08:12→20:39)
[2017-10-05] MEDS: IBUPROFEN 800 MG (MOTRIN) TAB PO SCH ×4 (08:12→23:28)
[2017-10-05 13:54] VITALS: BP 128/87
[2017-10-05] MEDS ORDERED: TETANUS,DIPTH,PERTUSS P/F (BOOSTRIX) 0.5 ML VIAL IM ONE (15:56)
[2017-10-05 20:35] VITALS: BP 110/78
[2017-10-06 02:50] VITALS: BP 111/76
[2017-10-06] MEDS: oxyCODONE/APAP 10/325MG (PERCOCET 10) TABLET PO PRN ×2 (02:55→08:20)
[2017-10-06] MEDS: IBUPROFEN 800 MG (MOTRIN) TAB PO SCH (06:40)
--- NOTE | 2017-10-06 07:17 | Progress Note-Standard ---
Standard Progress Note Progress Notes/Assess & Plan Date Seen by Provider: Oct 06, 2017 Time Seen by Provider: 07:16 Progress/Assessment & Plan This patient is without complaint. She is ambulating, voiding, tolerating oral intake is good pain control. Patient denies chest pain, denies shortness of breath, denies nausea vomiting, denies headache. Vital signs are stable. Patient is afebrile. Vital Signs 10/05/17 10/05/17 00:30 03:45 Temp 97.6 Pulse 70 Resp 18 B/P (MAP) 116/80 (92) Pulse Ox 97 O2 Delivery Room Air The abdomen is benign extremities show no clubbing or cyanosis. There is fairly notable pretibial pitting edema that is not new or abnormal. There is no Homans Assessment and plan postoperative day number 1 status post repeat delivery doing well. Plan for routine convalescence care today and consider discharge home tomorrow October 06, 2017 Patient is without complaint. She is ambulating, voiding, tolerating oral intake well has good pain control and is requesting discharge home. Vital Signs 10/06/17 02:50 Temp 97.9 Pulse 68 Resp 20 B/P (MAP) 111/76 (88) Pulse Ox 100 O2 Delivery Room Air Vital signs are stable. Patient afebrile. The abdomen is benign. Extremities show clubbing cyanosis. There is no Homans sign. Assessment and plan postoperative day number 2 status post repeat delivery doing well. Plan is for discharge home with follow-up in clinic Final Diagnosis Term repeat delivery JOSE ANGEL CARVALHO MD Oct 06, 2017 7:17 am
[2017-10-06 08:15] VITALS: BP 126/83
[2017-10-06] MEDS: DOCUSATE SODIUM 100 MG (COLACE) CAP PO SCH (08:20)
[2017-10-06 12:30] VITALS: BP 126/83
== END 2017-10-06 12:30 | disposition home or self-care (01) | DRG 765 ==
LOC: LDRP 09:50
PROVIDERS: ADMIT Obstetrics & Gynecology; ATTEND Obstetrics & Gynecology
PROC: 10D00Z1 Extraction of Products of Conception, Low, Open Approach (ICD-10-PCS; principal; 2017-10-04 11:53)
DX: O34.211 Maternal care for low transverse scar from previous cesarean delivery (principal); O99.214 Obesity complicating childbirth; E66.01 Morbid (severe) obesity due to excess calories; Z68.42 Body mass index [BMI] 45.0-49.9, adult; O41.03X0 Oligohydramnios, third trimester, not applicable or unspecified; O99.63 Diseases of the digestive system complicating the puerperium; K42.9 Umbilical hernia without obstruction or gangrene; Z37.0 Single live birth; Z3A.37 37 weeks gestation of pregnancy; Z23 Encounter for immunization
CPT/HCPCS: 36415; 85025; 86850; 86900; 86901; 90715; 94664

== ENCOUNTER 2018-01-30 05:32 | Outpatient (CLI) | payer OTHER ==
[~2018-01-30] VITALS: Ht 167.6 cm; Wt 124.3 kg
[~2018-01-30 05:32] MED LIST changes: -OXYC-202 PO; +OXYC1TAB12 PO
[2018-01-30] MEDS ORDERED: ESCI5TAB PO (09:57)
== END 2018-01-30 10:08 | disposition home or self-care (01) ==
LOC: PREOP 05:32
PROVIDERS: ATTEND Surgery
DX: Z01.818 Encounter for other preprocedural examination (principal)

== ENCOUNTER 2018-02-02 06:26 | Day surgery (SDC) | payer OTHER ==
[~2018-02-02] VITALS: Ht 167.6 cm; Wt 124.3 kg
[~2018-02-02 06:26] MED LIST changes: +ESCI5TAB PO
[2018-02-02 06:50] VITALS: BP 104/82
[2018-02-02] MEDS ORDERED: LACTATED RINGERS 1,000 ML IV PRN (06:51)
[2018-02-02] MEDS ORDERED: ROCURONIUM 10 MG/ML 5 ML SYRINGE IV ONE (06:56)
[2018-02-02] MEDS ORDERED: ONDANSETRON 4 MG/2 ML (SDV) Z0FRAN ONE ×2 (06:56→11:00)
[2018-02-02] MEDS ORDERED: proPOfol 200 MG/20 ML (DIPRIVAN) VIAL IV ONE (06:56)
[2018-02-02] MEDS ORDERED: fentaNYL INJECTION 100 MCG/2 ML AMP ONE (06:56)
[2018-02-02] MEDS ORDERED: LIDOCAINE PF 2% 5 ML (XYLOCAINE) VIAL ONE (06:56)
[2018-02-02] MEDS ORDERED: MIDAZOLAM 2 MG/2 ML (VERSED) VIAL ONE (06:57)
[2018-02-02] MEDS ORDERED: ceFAZolin INJECTION 1,000 MG in NS (IVPB) 50 ML IV ONE (07:00)
[2018-02-02] MEDS ORDERED: SEVOFLURANE (ULTANE) 15 ML INHAL SOLN ONE ×3 (07:01→10:32)
[2018-02-02] MEDS ORDERED: DEXAMETHASONE 10 MG/ML (DECADRON) 1 ML VIAL ONE (07:01)
[2018-02-02] MEDS ORDERED: LIDOCAINE/EPI 1%-1:200,000 (XYLOCAINE) 10 ML VIAL ONE (07:22)
--- NOTE | 2018-02-02 09:49 | Progress Note-Pre Operative ---
Pre-Operative Progress Note H&P Reviewed The H&P was reviewed, patient examined and no changes noted. Time Seen by Provider: 09:22 Date H&P Reviewed: Feb 02, 2018 Time H&P Reviewed: 09:23 Pre-Operative Diagnosis: Internal Hemorrhoid ARELI HLOMAN DO Feb 02, 2018 09:49
[2018-02-02] MEDS ORDERED: ceFAZolin 1,000 MG/10 ML (ANCEF) VIAL ONE (09:59)
[2018-02-02] MEDS ORDERED: NS (IVPB) 50 ML ONE (10:00)
--- NOTE | 2018-02-02 10:34 | Progress Note-Post Operative ---
Post-Operative Progess Note Surgeon (s)/Piper Installer (s) Surgeon ARELI HOLMAN DO Piper Installer: none Pre-Operative Diagnosis Internal Hemorrhoid Post-Operative Diagnosis Internal Hemorrhoid causing pain Thrombosed External hemorrhoid Procedure & Operative Findings Date of Procedure 02/02/18 Procedure Performed/Findings 1. Excision of internal hemorrhoid 2. Incision and Drainage of thrombosed external hemorrhoid Anesthesia Type LMA Estimated Blood Loss Estimated blood loss (mL): scant Specimens/Packing Specimens Removed internal hemorrhoid clot and vein from thrombosed external hemorrhoid ARELI HOLMAN DO Feb 02, 2018 10:34
[2018-02-02] MEDS ORDERED: DOCU-143 PO (10:35)
--- NOTE | 2018-02-02 10:37 | Discharge Inst-Surgical ---
Discharge Inst-Surgical Depart Medication/Instructions New, Converted or Re-Newed RX: Transmitted to Pharmacy Patient Instructions Follow up Appt: Make appointment for 1 week. Instructions: No strenuous activity. May shower in 24 hours, no tub bath or soaking. Use incentive spirometer at home as directed. No Smoking Skin/Wound Care: Sitz baths and clean area gently after bowel movements. Symptoms to Report: Appetite Changes, Extremity Discoloration, Numbness/Tingling, Swelling Increased , Bleeding Excessive, Eyesight Changes, Pain Increased, Urine Color Change, Constipation(Persistent), Fever over 101 degree F, Pain/Pressure in chest, Urinating Difficulty, Cough Up/Vomit Blood, Heart Beat Irreg/Pounding, Pain/ Pressure in jaw, Vaginal Bleeding Increase, Cramps in feet or legs, Lightheadedness, Pain/Pressure in shoulder, Diarrhea(Persistent), Memory Changes Suddenly, Questions/Concerns, Weight gain consecutive days, Dizziness/ Fainting, Nausea/Vomiting, Shortness of Breath, Weight gain over 2 pounds If questions or concerns contact your physician Or seek help at emergency department. Activity Activity as Tolerated: Yes Driving Instructions: No Driving/Refer to Dr. Griggs Discharge Diet: No Restrictions (increase fluid intake) Diet After 24 Hours: Clear Liquid if Nauseous If Any Problems/Questions/Issu: Contact Your Physician, Go to Emergency Room Skin/Wound Care Infection Signs and Symptoms: Increased Redness, Foul Odor of Wound, Increased Drainage, Skin Itchy or Has a Rash, Increased Swelling, Temperature Above 101 F Bathing Instructions: Tub, Shower ARELI HOLMAN DO Feb 02, 2018 10:37
[2018-02-02] MEDS ORDERED: ONDANSETRON 4 MG/2 ML (SDV) Z0FRAN IVP PRN (11:15)
[2018-02-02] MEDS ORDERED: MEPERIDINE (DEMEROL) INJ 50 MG/ML IVP ONE (11:15)
[2018-02-02] MEDS ORDERED: fentaNYL INJECTION 100 MCG/2 ML AMP IVP ONE (11:15)
[2018-02-02] MEDS ORDERED: morphine INJ 10 MG/ML 1ML (SYR OR VIAL) IVP ONE (11:15)
[2018-02-02 11:25] VITALS: BP 115/82
[2018-02-02 11:30] VITALS: BP 115/82
[2018-02-02 11:55] VITALS: BP 113/79
[2018-02-02 12:25] VITALS: BP 104/73
--- NOTE | 2018-02-02 13:48 | Anesthesia-General Post-Op ---
General Patient Condition Mental Status/LOC: Same as Preop Cardiovascular: Satisfactory Nausea/Vomiting: Absent Respiratory: Satisfactory Pain: Controlled Complications: Absent Post Op Complications Complications None Follow Up Care/Instructions Patient Instructions None needed. Anesthesia/Patient Condition Patient Condition Patient is doing well, no complaints, stable vital signs, no apparent adverse anesthesia problems. No complications reported per nursing. EHSAN CYR CRNA Feb 02, 2018 13:48
--- NOTE | 2018-02-02 17:43 | OPERATIVE REPORT ---
DATE OF SERVICE: 02/02/2018 PREOPERATIVE DIAGNOSIS: Internal hemorrhoid causing pain. POSTOPERATIVE DIAGNOSES: 1. Internal hemorrhoid causing pain. 2. Thrombosed external hemorrhoid. PROCEDURES: 1. Excision of internal hemorrhoid. 2. Incision and drainage of a thrombosed external hemorrhoid. SURGEON: Rojelio Regan DO CREDENTIALING ANALYST: None. ANESTHESIA: LMA by MINIATURE SET BUILDER. SPECIMEN: 1. Internal hemorrhoid. 2. Clot and veins from external hemorrhoid. ESTIMATED BLOOD LOSS: Scant. FLUIDS: Per anesthesia. POSTOPERATIVE CONDITION: Stable. INDICATION FOR PROCEDURE: The patient is a 37-year-old female, who saw me in the office with complaints of some rectal pain. Exam showed internal hemorrhoid coming down and some minimal external hemorrhoids. I had discussed with the patient, which one she wanted to do. She wanted to just take care of the small internal one because she is worried that the external one would cause too much pain; however, when she was in the OR before we started, I had noticed the external hemorrhoid had been thrombosed and looked a little bit worse. I went and spoke to the , described the external hemorrhoid procedure to him and he said yes, please go ahead and to remove this, so that she could not have any pain from the thrombosed external hemorrhoid. FINDINGS: The patient had internal hemorrhoid removed and then clot and vein removed from the thrombosed external hemorrhoid. All sent to pathology. PROCEDURE NOTE: After informed consent was obtained, the patient was brought to the operating room, placed on the table in lithotomy position. She was sterilely prepped and draped in normal fashion. Local lidocaine was used to perform ischial tuberosity block as well as blocking under and over the external hemorrhoid as well as under the internal hemorrhoid and then around the anus for regional block. At this point, I then elected to go at the retraction to spread the anus to par, able to grasp the internal hemorrhoid and cut this with scissors and then suture closed this incision with 4-0 chromic suture, then turned to the external hemorrhoid, made an incision directly over it, spread with hemostat and then able to start pulling out clot and some small portion of the vein. Once it was all completely removed, looked around, did not see any other obvious clots, then able to control the bleeding with Bovie electrocautery and at this point, the area was cleaned and dried and pad placed and the patient was then transferred to recovery room in stable condition. Sponge, instrument and needle counts correct at the end of the case. Job ID: [id number] DocumentID: [id number] Dictated Date: 02/02/2018 10:32:56 Secured Entrance Monitor Date: 02/02/2018 17:42:13 Dictated By: ROJELIO REGAN DO
== END 2018-02-02 12:40 | disposition home or self-care (01) ==
LOC: SDC 06:26
PROVIDERS: ATTEND Surgery
DX: K64.2 Third degree hemorrhoids (principal); K64.5 Perianal venous thrombosis; E66.9 Obesity, unspecified; Z68.41 Body mass index [BMI] 40.0-44.9, adult
CPT/HCPCS: 84703; 87081

== ENCOUNTER → 2021-05-19 | Outpatient (CLI) | payer OTHER ==
[~2021-05-19] VITALS: Ht 167.7 cm; Wt 121.8 kg
[~2021-05-19] MED LIST changes: +BUSP10TA95 PO; +DOCU-143 PO; -OXYC-465 PO; +OXYC-556 PO
== END | disposition home or self-care (01) ==
LOC: PREOP 05:31
PROVIDERS: ATTEND Surgery
DX: Z01.818 Encounter for other preprocedural examination (principal)

== ENCOUNTER 2021-05-27 08:26 | Day surgery (SDC) | payer OTHER ==
[~2021-05-27] VITALS: Ht 167.7 cm; Wt 121.8 kg
[2021-05-27] VITALS (12 sets, daily range): BP systolic 110–121; BP diastolic 67–90
[2021-05-27] MEDS ORDERED: ceFAZolin 2 GM IV Premixed 50 ML ONE (08:54)
[2021-05-27] MEDS: LACTATED RINGERS 1,000 ML IV PRN ×2 (08:55→11:45)
[2021-05-27] MEDS ORDERED: LIDOCAINE PF 2% 5 ML (XYLOCAINE) VIAL ONE (08:59)
[2021-05-27] MEDS ORDERED: ROCURONIUM 10 MG/ML 5 ML SYRINGE IV ONE (08:59)
[2021-05-27] MEDS ORDERED: proPOfol 200 MG/20 ML (DIPRIVAN) VIAL IV ONE (08:59)
[2021-05-27] MEDS ORDERED: MIDAZOLAM 2 MG/2 ML (VERSED) VIAL ONE (09:00)
[2021-05-27] MEDS ORDERED: ceFAZolin 2 GM IV Premixed 50 ML IV ONE (09:00)
[2021-05-27] MEDS ORDERED: fentaNYL INJ 100 MCG/2 ML AMP ONE (09:00)
--- NOTE | 2021-05-27 10:06 | Progress Note-Pre Operative ---
Pre-Operative Progress Note H&P Reviewed The H&P was reviewed, patient examined and no changes noted. Time Seen by Provider: 10:01 Date H&P Reviewed: May 27, 2021 Time H&P Reviewed: 10:01 Pre-Operative Diagnosis: Incarcerated umbilical hernia ARELI HOLMAN DO May 27, 2021 10:06
[2021-05-27] MEDS ORDERED: LIDOCAINE/EPI 1%-1:200,000 (XYLOCAINE) 30 ML VIAL ONE (10:31)
[2021-05-27] MEDS ORDERED: ONDANSETRON 4 MG/2 ML (SDV) Z0FRAN ONE ×2 (10:58→12:43)
[2021-05-27] MEDS ORDERED: HYDROmorphone 2 MG/ML VIAL (DILAUDID) ONE ×2 (11:05→12:41)
[2021-05-27] MEDS ORDERED: GLYCOPYRROLATE 0.2 MG/ML (ROBINUL) 2 ML VIAL ONE (11:59)
[2021-05-27] MEDS ORDERED: NEOSTIGMINE 3 MG/3 ML VIAL ONE (11:59)
--- NOTE | 2021-05-27 12:20 | Progress Note-Post Operative ---
Post-Operative Progess Note Surgeon (s)/Customer Acquisition Manager (s) Surgeon ARELI HOLMAN DO Customer Acquisition Manager: Rebecca Pre-Operative Diagnosis Incarcerated umbilical hernia Post-Operative Diagnosis Same plus incarcerated incisional hernia Procedure & Operative Findings Date of Procedure 05/27/21 Procedure Performed/Findings Laparoscopic Incisional herniarraphy with mesh placement - Robot Laparoscopic umbilical herniarraphy with mesh placement. COMPLICATIONS: None. INDICATIONS: The patient is a 63, male with an incarcerated incisional hernia, which has continued to increase in size and cause discomfort. The patient was explained the risk and benefits of the procedure and wished to proceed with the procedure. Consent was signed on the chart. DESCRIPTION OF PROCEDURE: The patient was taken into the operating suite, prepped and draped in sterile fashion. Surgical pause was performed. Local anesthetic was infiltrated in left upper quadrant. A #11 blade scalpel was used to make a small skin incision. Cautery was used to dissect down to the fascia, which was then scored and divided the muscle, went through the posterior sheath and a balloon trocar was inserted into the abdomen. The abdomen was then insufflated. Omentum was stuck in the fascial defect which appeared to extend all the way down to the pelvis. A picture was taken. Two 8mm trocars were placed; one in the left lower quadrant and another in between the upper and lower port. The robot was docked and instruments maxx aide. The incarcerated fat was then removed with blunt dissection and scissors with cautery. The defect turned out to be Umbilical and Incisional from her previous C- Sections. There was a large amount of Omentum in the defect. The defect was then closed using Non-absorbable 0 V-lock suture; it was at least 8cm long. Echo Ventralight mesh 15 x 20cm was then inserted in the abdomen grabbed through a stab incision. The balloon was inflated on the mesh. Circumferential tacks were placed approximately 0.5 to 1cm apart. Staring at the 12 o'clock position going all the way around and then placing a center crown of tacks. Did place another 5mm port on the right side; using [employer] system. Used the Absorbafix and the Secure strap. The balloon was then removed; mesh was tacked in place with pressure being decreased. The 12 mm fascial defect was then closed using 0 Vicryl. The abdomen was then desufflated,the trocars were removed. The skin was then closed using 4-0 Monocryl in a running subcuticular fashion. The abdomen was washed and dried and Skin Affix was placed over the incisions. The patient tolerated procedure well without any complications. She was taken to recovery room in stable condition. Dr. Fernandez helped make incisions, close incision, pass the mesh and sutures, as well as tack up the mesh; basically speeding up the case. Which benefits the pt. Anesthesia Type GET Estimated Blood Loss Estimated blood loss (mL): Scant Specimens/Packing Specimens Removed none ARELI HOLMAN DO May 27, 2021 12:20
[2021-05-27] MEDS ORDERED: ACHYD1T PO (12:21)
--- NOTE | 2021-05-27 12:22 | Discharge Inst-Surgical ---
Discharge Inst-Surgical Depart Medication/Instructions New, Converted or Re-Newed RX: Transmitted to Pharmacy Patient Instructions Follow up Appt: Make appointment for 1 week. [phone] Instructions: No lifting greater than 20 pounds. No strenuous activity. May shower in 24 hours, no tub bath or soaking. Use incentive spirometer at home as directed. No Smoking Skin/Wound Care: May remove bandages in am. You need to leave the Dermabond on incision it will fall off on it's own. Symptoms to Report: Appetite Changes, Extremity Discoloration, Numbness/Tingling, Swelling Increased, Bleeding Excessive, Eyesight Changes, Pain Increased, Urine Color Change, Constipation(Persistent), Fever over 101 degree F, Pain/Pressure in chest, Urinating Difficulty, Cough Up/Vomit Blood, Heart Beat Irreg/Pounding, Pain/Pressure in jaw, Cramps in feet or legs, Lightheadedness, Pain/Pressure in shoulder, Diarrhea(Persistent), Memory Changes Suddenly, Questions/Concerns, Weight gain consecutive days, Dizziness/Fainting, Nausea/Vomiting, Shortness of Breath, Weight gain over 2 pounds If questions or concerns contact your physician Or seek help at emergency department. Activity Activity as Tolerated: Yes Activity Instructions: Avoid Stress to Incision Driving Instructions: No Driving/Refer to Dr. Griggs Discharge Diet: No Restrictions Diet After 24 Hours: Clear Liquid if Nauseous If Any Problems/Questions/Issu: Contact Your Physician, Go to Emergency Room Skin/Wound Care Infection Signs and Symptoms: Increased Redness, Foul Odor of Wound, Increased Drainage, Skin Itchy or Has a Rash, Increased Swelling, Temperature Above 101 F Wound Care Comment: heating pad to shoulder or neck tonight for pain Bathing Instructions: Shower Stitches/Maryneal/Dermabond Dis: Dermabond Ice Pack: Ice On and Off Site ARELI HOLMAN DO May 27, 2021 12:22
[2021-05-27] MEDS ORDERED: KETOROLAC 30 MG/ML VIAL ONE (12:41)
[2021-05-27] MEDS: ONDANSETRON 4 MG/2 ML (SDV) Z0FRAN IVP PRN ×2 (12:43→13:21)
--- NOTE | 2021-05-27 12:43 | Anesthesia-General Post-Op ---
General Patient Condition Mental Status/LOC: Same as Preop Cardiovascular: Satisfactory Nausea/Vomiting: Absent Respiratory: Satisfactory Pain: Controlled Complications: Absent Post Op Complications Complications None Follow Up Care/Instructions Patient Instructions None needed. Anesthesia/Patient Condition Patient Condition Patient is doing well, no complaints, stable vital signs, no apparent adverse anesthesia problems. No complications reported per nursing. EHSAN CYR CRNA May 27, 2021 12:43
[2021-05-27] MEDS ORDERED: PROMETHAZINE INJ 25 MG/ML (PHENERGAN) AMP IVP ONE (12:45)
[2021-05-27] MEDS ORDERED: fentaNYL INJ 100 MCG/2 ML AMP IVP ONE (12:45)
[2021-05-27] MEDS ORDERED: MEPERIDINE (DEMEROL) INJ 50 MG/ML IVP ONE (12:45)
[2021-05-27] MEDS ORDERED: HYDROmorphone 2 MG/ML VIAL (DILAUDID) IV ONE (12:45)
[2021-05-27] MEDS ORDERED: KETOROLAC 30 MG/ML VIAL IVP ONE (12:45)
[2021-05-27] MEDS ORDERED: SEVOFLURANE (ULTANE) 15 ML INHAL SOLN ONE (13:23)
== END 2021-05-27 15:05 | disposition home or self-care (01) ==
LOC: SDC 08:26
PROVIDERS: ATTEND Surgery
DX: K42.0 Umbilical hernia with obstruction, without gangrene (principal); K43.0 Incisional hernia with obstruction, without gangrene; E66.9 Obesity, unspecified; Z68.41 Body mass index [BMI] 40.0-44.9, adult
CPT/HCPCS: 49653; 49655; 84703; 87081; C1781